=== PATIENT | male | born 1975 | race African-American/Black ===

== ENCOUNTER 2017-06-29 09:11 | Inpatient (IN) | payer BC ==
[~2017-06-29] VITALS: Ht 172.7 cm; Wt 75.7 kg
[2017-06-29 09:16] VITALS: BP 115/58; PULSE 120; RESP 30; TEMP 97.6; O2SAT 100
[2017-06-29] MEDS ORDERED: CALCIUM GLUCONATE 10% 1 GM/10 ML VIAL SLOW IVP ONE (09:30)
[2017-06-29] MEDS ORDERED: SODIUM BICARBONATE 8.4% SOLN 50 MEQ/50 ML VIAL IV PUSH PRN ×4 (09:30→11:30)
[2017-06-29] MEDS ORDERED: POTASSIUM CHLOR 20 MEQ PREMIX 100 ML IV PRN ×5 (09:30)
[2017-06-29] MEDS ORDERED: SODIUM PHOSPHATE INJ 15 MMOL in SODIUM CHLORIDE 0.9% INJ 100 ML IV PRN (09:30)
[2017-06-29] MEDS ORDERED: INSULIN HUMAN REGULAR 1,000 UNITS/10 ML VIAL IV PUSH ONE ×2 (09:30→11:15)
[2017-06-29] MEDS ORDERED: POTASSIUM CHLOR 40 MEQ PREMIX 100 ML IV PRN ×2 (09:30)
[2017-06-29 09:49] LABS: AUTOMATED NEUTROPHIL # 20.1 TH/MM3 (1.8-7.7); BASOPHIL # 0.1 TH/MM3 (0-0.2); BASOPHIL % 0.5 % (0.0-2.0); EOSINOPHIL % 0.1 % (0.0-4.0); HEMATOCRIT 48.9 % (39.0-51.0); LYMPH % 9.4 % (9.0-44.0); LYMPHOCYTE # 2.3 TH/MM3 (1.0-4.8); MEAN CELL VOLUME 106.4 FL (80.0-100.0); MEAN CORPUSCULAR HEMOGLOBIN 29.7 PG (27.0-34.0); MONO % 7.5 % (0.0-8.0); NEUT % 82.5 % (16.0-70.0); PLATELET COUNT 261 TH/MM3 (150-450); RED CELL DISTRIBUTION WIDTH 15.4 % (11.6-17.2); WHITE BLOOD COUNT 24.4 TH/MM3 (4.0-11.0)
[2017-06-29 09:50] LABS: HEMO FLAGS AUTO DIFF; I-STAT POTASSIUM 8.8 MMOL/L (3.5-4.9); I-STAT SODIUM 121 MMOL/L (138-146); MEAN CORPUSCULAR HGB CONC 27.9 % (32.0-36.0)
[2017-06-29] MEDS ORDERED: RESP: ALBUTEROL 2.5 MG/3 ML NEB (PRN) ONE (10:15)
[2017-06-29] MEDS ORDERED: VANCOMYCIN INJ 1,150 MG in SODIUM CHLOR 0.9% 250 ML INJ 250 ML IV ONE (10:15)
[2017-06-29] MEDS ORDERED: RESP: ALBUTEROL CONC 2.5 MG/0.5 ML NEB INH ONE (10:15)
[2017-06-29] MEDS ORDERED: CEFEPIME INJ 2,000 MG in SODIUM CHLORIDE 0.9% INJ 100 ML IV ONE (10:15)
[2017-06-29] MEDS ORDERED: SODIUM BICARBONATE 8.4% INJ 50 MEQ/50 ML SYR IV PUSH ONE (10:15)
[2017-06-29 10:21] VITALS: O2SAT 100
[2017-06-29 10:22] LABS: BANDS 10 % (0-6); METAMYELOCYTES 5 % (0-1); NEUTROPHIL # MANUAL DIFF 20.5 TH/MM3 (1.8-7.7); POLYS (SEG NEUTROPHILS) 69 % (16-70); WBC DIFF SAMPLE 100
[2017-06-29 10:23] LABS: PLATELET ESTIMATE SMEAR NORMAL (NORMAL); PLATELET MORPHOLOGY ENLARGED (NORMAL)
[2017-06-29 10:24] LABS: SCAN/DIFF FINAL DIFF MANUAL
--- NOTE | 2017-06-29 10:24 | PD ---
HPI Chief Complaint: Diabetic Time Seen by Provider: 09:25 Travel History International Travel<30 days: No Contact w/Intl Traveler<30days: No Traveled to known affect area: No History of Present Illness HPI This is a 41-year-old male who presents to the emergency department with nausea , vomiting, abdominal discomfort and fatigue. He doesn't provide much history and most history is obtained from [facility]. He is here out of town visiting a friend. He has a history of type 1 diabetes. PFSH Past Medical History Diabetes: Yes Patient Takes Glucophage: No Past Surgical History Appendectomy: Yes Social History Alcohol Use: Yes (OCC) Tobacco Use: No Substance Use: No Allergies-Medications (Allergen,Severity, Reaction): Coded Allergies: No Known Drug Allergies (Verified Allergy, Unknown, 06/29/17) Review of Systems ROS Limitations: Clinical Condition, Altered Mental Status Physical Exam Narrative GENERAL: Somnolent with Kussmaul respirations SKIN: Dry with skin tenting HEAD: Atraumatic. Normocephalic. EYES: Pupils equal and round. No injection or drainage. ENT: Dry mucous membranes NECK: Trachea midline. CARDIOVASCULAR: Tachycardia. No murmur appreciated. RESPIRATORY: tachypnea. GASTROINTESTINAL: Abdomen soft, non-tender, nondistended. MUSCULOSKELETAL: No obvious deformities. NEUROLOGICAL: Says his name and answer simple questions but very somnolent.. No obvious cranial nerve deficits. Moving all extremities Data Data Last Documented VS Vital Signs Date Time Temp Pulse Resp B/P (MAP) Pulse Ox O2 Delivery O2 Flow Rate FiO2 06/29/17 10:21 100 21 06/29/17 09:26 163 18 Room Air 06/29/17 09:16 97.6 115/58 (77) Orders Orders Electrocardiogram (06/29/17 09:28) Vacuum Truck Driver / Telemetry ANALILIA.Q8H (06/29/17 09:28) ^ Insert Iv (06/29/17 09:28) Diet Npo (06/29/17 Breakfast) Complete Blood Count With Diff (06/29/17 09:28) Comprehensive Metabolic Panel (06/29/17 09:28) Magnesium (Mg) (06/29/17 09:28) Beta Hydroxybutyrate (Acetone) (06/29/17 09:28) Sodium Chlor 0.9% 1000 Ml Inj (Ns 1000 M (06/29/17 09:28) Sodium Chlor 0.9% 1000 Ml Inj (Ns 1000 M (06/29/17 09:28) Dext 5%-Nacl 0.9% 1000 Ml Inj (D5w-Ns 10 (06/29/17 09:28) Insulin Human Regular Inj (Novolin R Inj (06/29/17 09:30) Insulin Regular (Iv Infusion) (Novolin R (06/29/17 09:30) Potassium Chlor 40 Meq Premix (Kcl 40 Me (06/29/17 09:30) Potassium Chlor 40 Meq Premix (Kcl 40 Me (06/29/17 09:30) Potassium Chlor 20 Meq Premix (Kcl 20 Me (06/29/17 09:30) Potassium Chlor 20 Meq Premix (Kcl 20 Me (06/29/17:30) Potassium Chlor 20 Meq Premix (Kcl 20 Me (06/29/17 09:30) Potassium Chlor 20 Meq Premix (Kcl 20 Me (06/29/17 09:30) Potassium Chlor 20 Meq Premix (Kcl 20 Me (06/29/17 09:30) Potassium Chlor 20 Meq Premix (Kcl 20 Me (06/29/17 09:30) Sodium Bicarbonate 8.4% Inj (Sodium Bica (06/29/17 09:30) Sodium Bicarbonate 8.4% Inj (Sodium Bica (06/29/17 09:30) Sodium Phosphate Inj (Sodium Phosphate I (06/29/17 09:30) Hemoglobin (Hgb) A1c (06/29/17 09:28) Urinalysis - C+S If Indicated (06/29/17 09:28) Basic Metabolic Panel (Bmp) (06/29/17 14:28) Basic Metabolic Panel (Bmp) (06/29/17 20:28) Basic Metabolic Panel (Bmp) (06/30/17 02:28) Basic Metabolic Panel (Bmp) (06/30/17 08:28) Magnesium (Mg) (06/29/17 14:28) Magnesium (Mg) (06/29/17 20:28) Magnesium (Mg) (06/30/17 02:28) Magnesium (Mg) (06/30/17 08:28) Phosphorus (Po4) (06/29/17:28) Phosphorus (Po4) (06/29/17 20:28) Phosphorus (Po4) (06/30/17 02:28) Phosphorus (Po4) (06/30/17 08:28) Beta Hydroxybutyrate (Acetone) (06/29/17 20:28) Beta Hydroxybutyrate (Acetone) (06/30/17 08:28) Arterial Blood Gas (Abg) (06/29/17 ) Calcium Gluconate Inj (Calcium Gluconate (06/29/17 09:30) I-Stat Profile (06/29/17 09:32) I-Stat Creatinine (06/29/17 09:32) Lactic Acid (06/29/17 09:40) Albuterol Concentrated Neb (Albuterol Co (06/29/17 10:15) Sodium Bicarbonate 8.4% Inj (Sodium Bica (06/29/17 10:15) Blood Culture (06/29/17 10:12) Vancomycin Inj (Vancomycin Inj) (06/29/17 10:15) Cefepime Inj (Maxipime Inj) (06/29/17 10:15) Albuterol Neb (Albuterol Neb) (06/29/17 10:15) Lipase (06/29/17 10:49) Alcohol (Ethanol) (06/29/17 11:04) Drug Screen, Random Urine (06/29/17 11:04) Urinary Catheter Insert/Apply (06/29/17 11:10) Admit Order (Ed Use Only) (06/29/17 11:12) Labs Laboratory Tests Test 06/29/17 09:29 06/29/17 10:25 White Blood Count 24.4 TH/MM3 Red Blood Count 4.60 MIL/MM3 Hemoglobin 13.6 GM/DL Bedside Hemoglobin 16.7 G/DL Hematocrit 48.9 % Bedside Hematocrit 49.0 % Mean Corpuscular Volume 106.4 FL Mean Corpuscular Hemoglobin 29.7 PG Mean Corpuscular Hemoglobin Concent 27.9 % Red Cell Distribution Width 15.4 % Platelet Count 261 TH/MM3 Mean Platelet Volume 11.2 FL Neutrophils (%) (Auto) 82.5 % Lymphocytes (%) (Auto) 9.4 % Monocytes (%) (Auto) 7.5 % Eosinophils (%) (Auto) 0.1 % Basophils (%) (Auto) 0.5 % Neutrophils # (Auto) 20.1 TH/MM3 Lymphocytes # (Auto) 2.3 TH/MM3 Monocytes # (Auto) 1.8 TH/MM3 Eosinophils # (Auto) 0.0 TH/MM3 Basophils # (Auto) 0.1 TH/MM3 CBC Comment AUTO DIFF Differential Total Cells Counted 100 Neutrophils % (Manual) 69 % Band Neutrophils % 10 % Lymphocytes % 8 % Monocytes % 8 % Neutrophils # (Manual) 20.5 TH/MM3 Metamyelocytes 5 % Differential Comment FINAL DIFF MANUAL Platelet Estimate NORMAL Platelet Morphology Comment ENLARGED Bedside Sodium 121 MMOL/L Blood Urea Nitrogen 55 MG/DL Creatinine 4.50 MG/DL Random Glucose 1308 MG/DL Total Protein 7.6 GM/DL Albumin 3.7 GM/DL Calcium Level 8.6 MG/DL Magnesium Level 3.1 MG/DL Alkaline Phosphatase 125 U/L Aspartate Amino Transf (AST/SGOT) 25 U/L Alanine Aminotransferase (ALT/SGPT) 27 U/L Total Bilirubin 0.6 MG/DL Sodium Level 121 MEQ/L Potassium Level 8.7 MEQ/L Chloride Level 83 MEQ/L Carbon Dioxide Level LESS THAN 5.0 MEQ/L Bedside Potassium 8.8 MMOL/L Bedside Chloride 95 MMOL/L Anion Gap 33 MEQ/L Bedside Blood Urea Nitrogen 69 MG/DL Bedside Creatinine 3.8 MG/DL Estimat Glomerular Filtration Rate 15 ML/MIN Bedside Glucose MG/DL Lactic Acid Level 6.2 mmol/L B-Hydroxybutyrate 14.96 MMOL/L Blood Gas Puncture Site LT BRACHIAL Blood Gas Patient Temperature 98.6 Blood Gas HCO3 3 mmol/L Blood Gas Base Excess -25.5 mmol/L Blood Gas Oxygen Saturation 95 % Arterial Blood pH 7.06 Arterial Blood Partial Pressure CO2 12 mmHg Arterial Blood Partial Pressure O2 144 mmHg Arterial Blood Oxygen Content 17.3 Vol % Arterial Blood Carboxyhemoglobin 1.6 % Arterial Blood Methemoglobin 1.4 % Blood Gas Hemoglobin 12.8 G/DL Oxygen Delivery Device RA MDM Medical Decision Making Medical Screen Exam Complete: Yes Emergency Medical Condition: Yes Interpretation(s) Leukocytosis Macrocytosis 10% bandemia Hyponatremia Hyperkalemia Lactic acid is 6.2 Differential Diagnosis DKA, sepsis, hyperkalemia, electrolyte abnormality Narrative Course This is a 41-year-old male who presents to the emergency department with vomiting abdominal discomfort and altered mental status. He is accompanied by some friends who say that he is a very heavy alcoholic and he hasn't taken his insulin for several days and his sugars been running high and he's been continuing to binge. Patient clinically appears to be in diabetic ketoacidosis. Initial EKG demonstrated a wide QRS and peak T waves. He was given calcium immediately on arrival. I-STAT labs confirmed a potassium of 8.8. Serial albuterol bronchodilators were administered and the patient was given IV bicarbonate. ABG confirms metabolic acidosis. Patient was started on an insulin drip. Labs are concerning for underlying sepsis with a leukocytosis and bandemia. Cultures were obtained and the patient was started on broad- spectrum antibiotics. He was given volume resuscitation. He'll be admitted to the intensive care unit. Critical Care Narrative Aggregate critical care time was 60 minutes. Time to perform other separately billable procedures was not included in the critical care time. My time did not include minutes spent treating any other patients simultaneously or on activities that did not directly contribute to the patient's treatment. The services I provided to this patient were to treat and/or prevent clinically significant deterioration that could result in: Disability, I provided critical care services requiring my management, as noted below: Chart data review, documentation time, medication orders and management, vital sign assessments/reviewing monitor data, ordering and reviewing lab tests, ordering and interpreting/reviewing x-rays and diagnostic studies, care of the patient and discussion of the patient with the admitting physicians. Physician Communication Physician Communication Discussed with Dr. Dr. Dwyer Diagnosis Primary Impression: Diabetic ketoacidosis Qualified Codes: E10.11 - Type 1 diabetes mellitus with ketoacidosis with coma Admitting Information Admitting Physician Requests: Admit Shavonne Lua MD Jun 29, 2017 10:24
[2017-06-29] MEDS: SODIUM CHLOR 0.9% 1000 ML INJ 1,000 ML IV SCH ×7 (10:28→23:30)
[2017-06-29] MEDS: INSULIN REGULAR (IV INFUSION) 100 UNITS in SODIUM CHLORIDE 0.9% INJ 99 ML IV PRN ×2 (10:47→21:56)
[2017-06-29 10:55] LABS: BLOOD GAS BASE EXCESS -25.5 mmol/L (-2-2); BLOOD GAS CARBOXYHEMOGLOBIN 1.6 % (0-4); BLOOD GAS HCO3 3 mmol/L (22-26); BLOOD GAS METHEMOGLOBIN 1.4 % (0-2); BLOOD GAS O2 HGB SATURATION 95 % (90-100); BLOOD GAS OXYGEN CONTENT 17.3 Vol % (12.0-20.0); BLOOD GAS PCO2 12 mmHg (38-42); BLOOD GAS PO2 144 mmHg (61-120); BLOOD GAS TOTAL HGB 12.8 G/DL (12.0-16.0); TEMP CORR TO 98.6
[2017-06-29 10:56] LABS: CRITICAL VALUE YES; DRAW SITE LT BRACHIAL; NUMBER OF ARTERIAL PUNCTURES 1; OXYGEN DEVICE RA; STAT YES; ULNAR PULSE Y
[2017-06-29 11:02] LABS: ALKALINE PHOSPHATASE 125 U/L (45-117); ALT (GPT) 27 U/L (12-78); ANION GAP 33 MEQ/L (5-15); BICARBONATE LESS THAN 5.0 MEQ/L (21.0-32.0); BLOOD UREA NITROGEN 55 MG/DL (7-18); CHLORIDE 83 MEQ/L (98-107); GLOMERULAR FILTRATION RATE 15 ML/MIN (>89); TOTAL BILIRUBIN ADULT 0.6 MG/DL (0.2-1.0)
[2017-06-29 11:04] LABS: AST (GOT) 25 U/L (15-37); BETA-HYDROXYBUTYRATE 14.96 MMOL/L (0.00-0.39); MAGNESIUM 3.1 MG/DL (1.5-2.5); POTASSIUM 8.7 MEQ/L (3.5-5.1); SODIUM (NA) 121 MEQ/L (136-145)
[2017-06-29] MEDS ORDERED: CHLORHEXIDINE GLUCONATE 2 % 1 PACK (2 CLOTHS) TOP PRN (11:30)
[2017-06-29] MEDS ORDERED: MISCELLANEOUS NURSING INFORMATION XX SCH (11:30)
--- NOTE | 2017-06-29 11:38 | RADRPT ---
EXAM DATE/TIME: 06/29/2017 11:18 [facility] COMPARISON: No previous studies available for comparison. INDICATIONS : Eval for aspiration, short of breath. MEDICAL HISTORY : Diabetes mellitus type I. SURGICAL HISTORY : None. ENCOUNTER: Initial ACUITY: 1 day PAIN SCORE: 0/10 LOCATION: Bilateral chest FINDINGS: A single view of the chest demonstrates the lungs to be symmetrically aerated without evidence of mas s, infiltrate or effusion. The cardiomediastinal contours are unremarkable. Osseous structures are intact. CONCLUSION: No acute disease. Zev Banda Jr., MD on June 29, 2017 at 11:36 Board Certified Radiologist. This report was verified electronically.
[2017-06-29] MEDS ORDERED: HUMALOG SQ (12:02)
[2017-06-29] MEDS ORDERED: HIV MEDICATIONS (12:02)
[2017-06-29] MEDS ORDERED: LISI-515 PO (12:02)
[2017-06-29] MEDS ORDERED: LANTUS2P SQ (12:02)
--- NOTE | 2017-06-29 12:40 | HHI.HP ---
HPI Service Critical Care Medicine Primary Care Physician Unknown Admission Diagnosis diabetic ketoacidosis Diagnosis: Chief Complaint: Altered mental status Travel History International Travel<30 Days: No Contact w/Intl Traveler <30 Da: No Traveled to Known Affected Are: No Sepsis Criteria SIRS Criteria (2 or more): Heart rate over 90, RR > 20 or PaCO2 < 32, WBC > 32500, < 4000 or > 10% bands Criteria Outcome: Meets SIRS criteria History of Present Illness HPI This is a 41-year-old male who presents to the emergency department with nausea , vomiting, abdominal discomfort and fatigue which started this morning. He has a history of type 1 diabetes and has been on insulin for 5 years. He was initially diagnosed as diabetic from an episode of DKA. His friends brought him to the ER today and informed ER staff that patient has an alcohol abuse problem and has been drinking significant amounts of alcohol though the brought him to [facility] from [place] for an intervention. Patient was noted to have severe metabolic acidosis on arrival in the ER as well as hyperkalemia with suspected DKA. He also was noted to have an elevated lactic acid, abnormal renal function and leukocytosis. He was treated with IV calcium, bicarbonate, albuterol and subsequently given 7 units regular insulin IV and started on insulin drip per DKA protocol. He received 2 L normal saline bolus and was continued on IV fluids. Patient was accepted for admission by critical care medicine service. I evaluated the patient in the ER. At that time he was much more awake however was too drowsy. He was easily arousable and couldn't give me some of his history. History was obtained by reviewing records, discussion with patient as well as ER physician and ER nurse. When I evaluated the patient he denied any chest pain or nausea or abdominal discomfort. He denied any fever or chills. Denied any productive cough. He denied any dysuria or hematuria or any other urinary problem. PFSH Past Medical History Diabetes: Yes Patient Takes Glucophage: No Hypertension Past Surgical History Appendectomy: Yes Social History Alcohol Use: Yes (OCC) Tobacco Use: No Substance Use: No Family history: Patient denies any family history of diabetes mellitus. Allergies-Medications (Allergen,Severity, Reaction): Coded Allergies: No Known Drug Allergies (Verified Allergy, Unknown, 06/29/17) Medications at home: Lantus insulin 30 units subcutaneously daily at bedtime Regular insulin 9 units 3 times a day before meals Lisinopril 5 mg daily (recently started per patient) Review of Systems ROS Limitations: Clinical Condition, Altered Mental Status Per history of present illness Physical Exam Vital Signs Vital Signs Date Time Temp Pulse Resp B/P (MAP) Pulse Ox O2 Delivery O2 Flow Rate FiO2 06/29/17 10:21 100 21 06/29/17 09:26 163 18 100 Room Air 06/29/17 09:16 97.6 120 30 115/58 (77) 100 Physical Exam Physical Exam Narrative GENERAL: Somnolent with Kussmaul respirations SKIN: Warm and dry HEAD: Atraumatic. Normocephalic. EYES: Pupils equal and round. No injection or drainage. No pallor or icterus ENT: Dry mucous membranes NECK: Trachea midline. CARDIOVASCULAR: S1-S2 regular, no gallop or murmur RESPIRATORY: tachypnea. GASTROINTESTINAL: Abdomen soft, non-tender, nondistended. Bowel sounds present MUSCULOSKELETAL: No obvious deformities. NEUROLOGICAL: Drowsy, easily arousable, knows he is at the hospital. Knows it is June 2017. No obvious cranial nerve deficits. Following commands appropriately. Moving all extremities Laboratory Laboratory Tests Test 06/29/17 09:29 06/29/17 10:25 06/29/17 11:45 White Blood Count 24.4 TH/MM3 Red Blood Count 4.60 MIL/MM3 Hemoglobin 13.6 GM/DL Bedside Hemoglobin 16.7 G/DL Hematocrit 48.9 % Bedside Hematocrit 49.0 % Mean Corpuscular Volume 106.4 FL Mean Corpuscular Hemoglobin 29.7 PG Mean Corpuscular Hemoglobin Concent 27.9 % Red Cell Distribution Width 15.4 % Platelet Count 261 TH/MM3 Mean Platelet Volume 11.2 FL Neutrophils (%) (Auto) 82.5 % Lymphocytes (%) (Auto) 9.4 % Monocytes (%) (Auto) 7.5 % Eosinophils (%) (Auto) 0.1 % Basophils (%) (Auto) 0.5 % Neutrophils # (Auto) 20.1 TH/MM3 Lymphocytes # (Auto) 2.3 TH/MM3 Monocytes # (Auto) 1.8 TH/MM3 Eosinophils # (Auto) 0.0 TH/MM3 Basophils # (Auto) 0.1 TH/MM3 CBC Comment AUTO DIFF Differential Total Cells Counted 100 Neutrophils % (Manual) 69 % Band Neutrophils % 10 % Lymphocytes % 8 % Monocytes % 8 % Neutrophils # (Manual) 20.5 TH/MM3 Metamyelocytes 5 % Differential Comment FINAL DIFF MANUAL Platelet Estimate NORMAL Platelet Morphology Comment ENLARGED Bedside Sodium 121 MMOL/L Blood Urea Nitrogen 55 MG/DL Creatinine 4.50 MG/DL Random Glucose 1308 MG/DL Total Protein 7.6 GM/DL Albumin 3.7 GM/DL Calcium Level 8.6 MG/DL Magnesium Level 3.1 MG/DL Alkaline Phosphatase 125 U/L Aspartate Amino Transf (AST/SGOT) 25 U/L Alanine Aminotransferase (ALT/SGPT) 27 U/L Total Bilirubin 0.6 MG/DL Sodium Level 121 MEQ/L Potassium Level 8.7 MEQ/L Chloride Level 83 MEQ/L Carbon Dioxide Level LESS THAN 5.0 MEQ/L Bedside Potassium 8.8 MMOL/L Bedside Chloride 95 MMOL/L Anion Gap 33 MEQ/L Bedside Blood Urea Nitrogen 69 MG/DL Bedside Creatinine 3.8 MG/DL Estimat Glomerular Filtration Rate 15 ML/MIN Bedside Glucose MG/DL Lactic Acid Level 6.2 mmol/L Lipase 301 U/L Ethyl Alcohol Level LESS THAN 3 MG/DL B-Hydroxybutyrate 14.96 MMOL/L Blood Gas Puncture Site LT BRACHIAL Blood Gas Patient Temperature 98.6 Blood Gas HCO3 3 mmol/L Blood Gas Base Excess -25.5 mmol/L Blood Gas Oxygen Saturation 95 % Arterial Blood pH 7.06 Arterial Blood Partial Pressure CO2 12 mmHg Arterial Blood Partial Pressure O2 144 mmHg Arterial Blood Oxygen Content 17.3 Vol % Arterial Blood Carboxyhemoglobin 1.6 % Arterial Blood Methemoglobin 1.4 % Blood Gas Hemoglobin 12.8 G/DL Oxygen Delivery Device RA Result Diagram: 06/29/1792806/29/17928 Imaging Chest x-ray portable which was personally reviewed: Lung lovell appear clear with no obvious infiltrates or effusions. Caprini VTE Risk Assessment Caprini VTE Risk Assessment: No/Low Risk (score <= 1) Caprini Risk Assessment Model Point Value = 1 Point Value = 2 Point Value = 3 Point Value = 5 Age 41-60 Minor surgery BMI > 25 kg/m2 Swollen legs Varicose veins or History of unexplained or recurrent spontaneous Oral contraceptives or hormone replacement Sepsis (< 1 month) Serious lung disease, including pneumonia (< 1 month) Abnormal pulmonary function Acute myocardial infarction Congestive heart failure (< 1 month) History of inflammatory bowel disease Medical patient at bed rest Age 61-74 Arthroscopic surgery Major open surgery (> 45 min) Laparoscopic surgery (> 45 min) Malignancy Confined to bed (> 72 hours) Immobilizing plaster cast Central venous access Age >= 75 History of VTE Family history of VTE Factor V Leiden Prothrombin [id number] Lupus anticoagulant Anticardiolipin antibodies Elevated serum homocysteine Heparin-induced thrombocytopenia Other congenital or acquired thrombophilia Stroke (< 1 month) Elective arthroplasty Hip, pelvis, or leg fracture Acute spinal cord injury (< 1 month) Prophylaxis Regimen Total Risk Factor Score Risk Level Prophylaxis Regimen 0-1 Low Early ambulation 2 Moderate Order ONE of the following: *Sequential Compression Device (SCD) *Heparin 5000 units SQ BID 3-4 Higher Order ONE of the following medications: *Heparin 5000 units SQ TID *Enoxaparin/Lovenox 40 mg SQ daily (WT < 150 kg, CrCl > 30 mL/min) *Enoxaparin/Lovenox 30 mg SQ daily (WT < 150 kg, CrCl > 10-29 mL/min) *Enoxaparin/Lovenox 30 mg SQ BID (WT < 150 kg, CrCl > 30 mL/min) AND/OR *Sequential Compression Device (SCD) 5 or more Highest Order ONE of the following medications: *Heparin 5000 units SQ TID (Preferred with Epidurals) *Enoxaparin/Lovenox 40 mg SQ daily (WT < 150 kg, CrCl > 30 mL/min) *Enoxaparin/Lovenox 30 mg SQ daily (WT < 150 kg, CrCl > 10-29 mL/min) *Enoxaparin/Lovenox 30 mg SQ BID (WT < 150 kg, CrCl > 30 mL/min) AND *Sequential Compression Device (SCD) Assessment and Plan Assessment and Plan 41-year-old male with: Metabolic encephalopathy Diabetic ketoacidosis Hyperosmolar state Lactic acidosis Hyperkalemia Pseudohyponatremia (corrected sodium 150 mEq/liter) TANNER Dehydration History of alcohol abuse History of hypertension Plan: Neuro: Follow neuro status, avoid narcotics. Watch for alcohol withdrawal. We will initiate by mouth thiamine/folic acid and alcohol withdrawal protocol to avoid alcohol withdrawal. Cardiovascular: Aggressive fluid resuscitation. Watch for hypotension. Hold lisinopril in view of acute kidney injury. Pulmonary: Supplemental O2 as needed. Patient hyperventilating secondary to metabolic acidosis and this should improve as acidosis corrects. Follow ABG. GI/liver: Keep nothing by mouth for now. Renal/: IV hydration, strict intake output, monitor and replete elect lites, follow BUN/creatinine. Cotton catheterization for close monitoring of urine output while fluid resuscitation ongoing and patient with acute renal failure and dehydration with hyperkalemia. Monitor and replete electrolytes ID: Patient received empiric antibiotics in the ER. His chest x-ray is clear. Will review UA and if clear we'll hold off on antibiotics at this time as he appears to have a SIRS response secondary to DKA with no obvious source of infection. Heme: Follow CBC Endocrine: Insulin drip per DKA protocol. Prophylaxis: Pepcid, SCDs. Early ambulation starting tomorrow depending on resolution of DKA. If unable to ambulate will consider subcutaneous heparin tomorrow. Condition critical with life-threatening metabolic acidosis and hyperkalemia secondary to DKA. Time spent on critical care excluding procedures 70 minutes Matthew Dwyer MD Jun 29, 2017 12:40
[2017-06-29 13:02] LABS: BACTERIA, URINE RARE /hpf; BLOOD, URINE SMALL (NEG); COMMENT (UR) CATH-CULTURE IND; CULTURE IF INDICATED CATH CULTURE IND; GLUCOSE,URINE 1000 mg/dL (NEG); HYALINE CAST, URINE 6 /lpf (RARE); KETONE, URINE 150 mg/dL (NEG); MUCUS URINE FEW /lpf (OCC); NITRITE,URINE NEG (NEG); PH, URINE 5.5 (5.0-8.5); SQUAMOUS EPITHELIAL CELL URINE <1 /hpf (0-5); URINE COLOR LIGHT-YELLOW (YELLW/STRAW)
[2017-06-29] MEDS ORDERED: LORazepam 2 MG/ML VIAL IV PUSH PRN ×4 (13:45)
[2017-06-29] MEDS ORDERED: cloNIDine HCL 0.1 MG TAB PO PRN (13:45)
[2017-06-29] MEDS ORDERED: LORazepam 1 MG TAB PO PRN (13:45)
[2017-06-29] MEDS ORDERED: HALOPERIDOL LACTATE 5 MG/ML AMP IM PRN (13:45)
[2017-06-29] MEDS ORDERED: ONDANSETRON HCL 4 MG/2 ML VIAL IV PUSH PRN (13:45)
[2017-06-29] MEDS ORDERED: FLUMAZENIL 0.5 MG/5 ML VIAL IV PUSH PRN (13:45)
[2017-06-29] MEDS ORDERED: LORazepam 2 MG TAB PO PRN (13:45)
--- NOTE | 2017-06-29 14:21 | EKG ---
Date Performed: 06/29/2017 Time Performed: 09:29:39 PTAGE: 41 years EKG: WIDE COMPLEX TACHYCARDIA, CONSIDER VENTRICULAR TACHYCARDIA T WAVE PEAKING CONSIDER HYPERKAL EMIA OR ISCHEMIA NONSPECIFIC INTRAVENTRICULAR CONDUCTION DELAY LEFT ANTERIOR FASCICULAR BLOCK ABNORMA L ECG NO PREVIOUS TRACING DOCTOR: Hong Matthew Interpretating Date/Time 06/29/2017 14:20:01
[2017-06-29 14:24] LABS: BLOOD GAS BASE EXCESS -23.4 mmol/L (-2-2); BLOOD GAS CARBOXYHEMOGLOBIN 2.2 % (0-4); BLOOD GAS HCO3 4 mmol/L (22-26); BLOOD GAS METHEMOGLOBIN 1.8 % (0-2); BLOOD GAS O2 HGB SATURATION 94 % (90-100); BLOOD GAS OXYGEN CONTENT 17.2 Vol % (12.0-20.0); BLOOD GAS PCO2 14 mmHg (38-42); BLOOD GAS PO2 128 mmHg (61-120); BLOOD GAS TOTAL HGB 12.8 G/DL (12.0-16.0); TEMP CORR TO 98.6
[2017-06-29 14:25] LABS: CRITICAL VALUE YES; OXYGEN DEVICE RA
[2017-06-29 14:26] LABS: DRAW SITE RT RADIAL; FIO2 21 %; NUMBER OF ARTERIAL PUNCTURES 1; STAT NO; ULNAR PULSE PRESENT
--- NOTE | 2017-06-29 15:59 | EKG ---
Date Performed: 06/29/2017 Time Performed: 10:55:39 PTAGE: 41 years EKG: Unclear underlying tachycardia LEFT ANTERIOR FASCICULAR BLOCK TALL T-WAVES, SUGGESTS HYPERK ALEMIA ABNORMAL ECG No significant change from prior electrocardiogram although T-wave amplitudes hav e it decreased. NO PREVIOUS TRACING DOCTOR: Bonifacio Cedeno Interpretating Date/Time 06/29/2017 15:58:09
[2017-06-29 16:13] LABS: BICARBONATE 7.1 MEQ/L (21.0-32.0); POTASSIUM 4.4 MEQ/L (3.5-5.1)
[2017-06-29 19:02] VITALS: O2SAT 99
[2017-06-29] MEDS: DEXT 5%-NACL 0.9% 1000 ML INJ 1,000 ML IV SCH (19:28)
[2017-06-29 20:00] VITALS: BP 120/62; PULSE 109; RESP 18; TEMP 99.2; O2SAT 100
[2017-06-29 20:00] LABS: ANION GAP 22 MEQ/L (5-15)
[2017-06-29 20:13] LABS: BETA-HYDROXYBUTYRATE 7.42 MMOL/L (0.00-0.39); BLOOD UREA NITROGEN 50 MG/DL (7-18); CHLORIDE 105 MEQ/L (98-107); GLOMERULAR FILTRATION RATE 22 ML/MIN (>89); MAGNESIUM 2.9 MG/DL (1.5-2.5); POTASSIUM 3.6 MEQ/L (3.5-5.1); SODIUM (NA) 141 MEQ/L (136-145)
[2017-06-29] MEDS: FAMOTIDINE 20 MG TAB PO SCH (20:14)
[2017-06-29] MEDS: POTASSIUM CHLOR 20 MEQ PREMIX 100 ML IV PRN ×2 (20:45→22:58)
[2017-06-29 22:00] VITALS: PULSE 106
[2017-06-30] VITALS (20 sets, daily range): BP systolic 112–133; BP diastolic 60–87; PULSE 89–111; RESP 14–23; TEMP 98.2–99.5; O2SAT 96–98
[2017-06-30] MEDS: DEXT 5%-NACL 0.9% 1000 ML INJ 1,000 ML IV SCH ×2 (01:04→07:16)
[2017-06-30] MEDS: SODIUM CHLOR 0.9% 1000 ML INJ 1,000 ML IV SCH ×4 (01:28→07:16)
[2017-06-30] MEDS: CHLORHEXIDINE GLUCONATE 2 % 1 PACK (2 CLOTHS) TOP SCH (04:00)
[2017-06-30 04:15] LABS: BICARBONATE 26.3 MEQ/L (21.0-32.0); MAGNESIUM 2.5 MG/DL (1.5-2.5); POTASSIUM 3.4 MEQ/L (3.5-5.1)
[2017-06-30] MEDS: POTASSIUM CHLOR 20 MEQ PREMIX 100 ML IV PRN (05:18)
[2017-06-30] MEDS ORDERED: DC Insulin drip 2 hrs post basal insulin dose ONE (07:45)
[2017-06-30] MEDS ORDERED: GLUCAGON 1 MG/ML VIAL OTHER PRN (07:45)
[2017-06-30] MEDS ORDERED: DC previous DKA orders (HMC 1917) ONE (07:45)
[2017-06-30] MEDS ORDERED: DEXTROSE 50% IN WATER 50 ML VIAL(D50) IV PUSH PRN (07:45)
--- NOTE | 2017-06-30 07:52 | HHI.CCPN ---
Subjective Remarks/Hospital Course This is a 41-year-old male who presents to the emergency department with nausea , vomiting, abdominal discomfort and fatigue which started this morning. He has a history of type 1 diabetes and has been on insulin for 5 years. He was initially diagnosed as diabetic from an episode of DKA. His friends brought him to the ER today and informed ER staff that patient has an alcohol abuse problem and has been drinking significant amounts of alcohol though the brought him to [facility] from [place] for an intervention. Patient was noted to have severe metabolic acidosis on arrival in the ER as well as hyperkalemia with suspected DKA. He also was noted to have an elevated lactic acid, abnormal renal function and leukocytosis. He was treated with IV calcium, bicarbonate, albuterol and subsequently given 7 units regular insulin IV and started on insulin drip per DKA protocol. He received 2 L normal saline bolus and was continued on IV fluids. Patient was accepted for admission by critical care medicine service. I evaluated the patient in the ER. At that time he was much more awake however was too drowsy. He was easily arousable and couldn't give me some of his history. History was obtained by reviewing records, discussion with patient as well as ER physician and ER nurse. When I evaluated the patient he denied any chest pain or nausea or abdominal discomfort. He denied any fever or chills. Denied any productive cough. He denied any dysuria or hematuria or any other urinary problem. SUBJECTIVE: 06/30: Resting comfortably in bed in no acute distress. Denies abdominal pain. Acetone has cleared. Afebrile. Objective Vital Signs Date Time Temp Pulse Resp B/P (MAP) Pulse Ox O2 Delivery O2 Flow Rate FiO2 06/30/17 06:00 100 06/30/17 04:00 98.2 16 128/77 (94) 96 06/29/17 19:02 21 06/29/17 09:26 Room Air Intake and Output 06/30/17 06/30/17 07/01/17 08:00 16:00 00:00 Intake Total 1589 ml Output Total 3600 ml Balance -2010 ml Result Diagram: 06/29/17 0929 06/30/17 0340 Other Results Microbiology Date/Time Source Procedure Growth Status 06/29/17 10:25 Blood Peripheral Aerobic Blood Culture Pending Received 06/29/17 10:25 Blood Peripheral Anaerobic Blood Culture Pending Received 06/29/17 11:50 Urine Catheterized Urine Urine Culture Pending Received Imaging Last Impressions Chest X-Ray 06/29/17 0000 Signed Impressions: Service Date/Time: Thursday, June 29, 2017 11:18 - CONCLUSION: No acute disease. Zev Banda Jr., MD Objective Remarks GENERAL: 41-year-old male, resting in bed in no distress on room air SKIN: Warm and dry HEAD: Atraumatic. Normocephalic. EYES: Pupils equal and round. No injection or drainage. No pallor or icterus ENT: Examined and moist and pink. NECK: Trachea midline. CARDIOVASCULAR: S1-S2 regular, no gallop or murmur RESPIRATORY: Essentially clear without wheezes rales or rhonchi GASTROINTESTINAL: Abdomen soft, non-tender, nondistended. Bowel sounds present MUSCULOSKELETAL: No obvious deformities. NEUROLOGICAL: Renal nerves II through XII grossly intact. Strength is equal symmetric. Normal sensation. A/P Assessment and Plan 41-year-old male with: Diabetic ketoacidosis Hyperosmolar state Lactic acidosis Hyperkalemia Pseudohyponatremia (corrected sodium 150 mEq/liter) TANNER Leukocytosis Dehydration History of alcohol abuse History of hypertension Plan: Neuro: Follow neuro status, avoid narcotics. Watch for alcohol withdrawal. Continue by mouth thiamine/folic acid and alcohol withdrawal protocol to avoid alcohol withdrawal. Cardiovascular: Aggressive fluid resuscitation. We'll switch to half-normal saline at 125 cc an hour 2 L Watch for hypotension. Hold lisinopril in view of acute kidney injury. Pulmonary: Supplemental O2 as needed. Patient hyperventilating has subsided GI/liver: 2000 kcal ADA diet Renal/: IV hydration, strict intake output, monitor and replete electrolytes, follow BUN/creatinine. Cotton catheterization for close monitoring of urine output while fluid resuscitation ongoing and patient with acute renal failure and dehydration with hyperkalemia. Monitor and replete electrolytes ID: Patient received empiric antibiotics in the ER. His chest x-ray is clear. Will review UA and if clear we'll hold off on antibiotics at this time as he appears to have a SIRS response secondary to DKA with no obvious source of infection. Heme: Follow CBC in a.m. Endocrine: Insulin drip per DKA protocol will be discontinued and transferred to insulin detemir 15 units twice a day and insulin aspart 8 units 3 times a day with sliding scale Prophylaxis: Famotidine, SCDs. Early ambulation starting tomorrow depending on resolution of DKA. Level II follow-up Patient is stable from a critical care medicine standpoint. Assign care to hospitalist in a.m. 07/01. Mj Torres MD Jun 30, 2017 07:52
[2017-06-30] MEDS: INSULIN ASPART 1,000 UNITS/10 ML VIAL SQ SCH ×3 (08:00→17:00)
[2017-06-30] MEDS: SODIUM CHLOR 0.45% 1000 ML INJ 1,000 ML IV SCH ×2 (08:00→16:00)
[2017-06-30] MEDS ORDERED: INSULIN NovoLIN REGULAR SUPPLEMENTAL SCALE SQ SCH ×3 (08:00)
[2017-06-30] MEDS: INSULIN NovoLIN REGULAR SUPPLEMENTAL SCALE SQ SCH ×4 (08:00→20:25)
[2017-06-30] MEDS ORDERED: POTASSIUM PHOSPHATE INJ 30 MMOL in SODIUM CHLOR 0.9% 250 ML INJ 250 ML IV ONE (10:00)
[2017-06-30] MEDS: FAMOTIDINE 20 MG TAB PO SCH ×2 (10:49→20:30)
[2017-06-30] MEDS: THIAMINE HCL 100 MG TAB PO SCH (10:49)
[2017-06-30] MEDS: FOLIC ACID 1 MG TAB PO SCH (10:49)
[2017-06-30] MEDS: MULTIVITAMINS/MINERALS THERAPEUTIC TAB PO SCH (10:49)
[2017-06-30] MEDS: INSULIN DETEMIR 100 UNITS/ML VIAL SQ SCH ×2 (10:50→20:30)
[2017-06-30 11:20] LABS: BICARBONATE 23.3 MEQ/L (21.0-32.0); MAGNESIUM 2.2 MG/DL (1.5-2.5); POTASSIUM 4.1 MEQ/L (3.5-5.1)
[2017-06-30 11:30] LABS: BETA-HYDROXYBUTYRATE 4.84 MMOL/L (0.00-0.39)
[2017-06-30 17:31] LABS: BICARBONATE 25.7 MEQ/L (21.0-32.0); POTASSIUM 3.4 MEQ/L (3.5-5.1)
[2017-07-01] VITALS (9 sets, daily range): BP systolic 119–148; BP diastolic 74–80; PULSE 77–98; RESP 16–20; TEMP 98–99.9; O2SAT 96–99
[2017-07-01] MEDS: CHLORHEXIDINE GLUCONATE 2 % 1 PACK (2 CLOTHS) TOP SCH (04:00)
[2017-07-01 06:21] LABS: AUTOMATED NEUTROPHIL # 8.6 TH/MM3 (1.8-7.7); BASOPHIL % 0.4 % (0.0-2.0); EOSINOPHIL % 0.2 % (0.0-4.0); HEMATOCRIT 39.2 % (39.0-51.0); HEMO FLAGS DIFF FINAL; LYMPHOCYTE # 1.8 TH/MM3 (1.0-4.8); MEAN CELL VOLUME 88.2 FL (80.0-100.0); MEAN CORPUSCULAR HEMOGLOBIN 29.1 PG (27.0-34.0); MEAN CORPUSCULAR HGB CONC 32.9 % (32.0-36.0); MONO % 7.4 % (0.0-8.0); PLATELET COUNT 176 TH/MM3 (150-450); RED BLOOD COUNT 4.45 MIL/MM3 (4.50-5.90); RED CELL DISTRIBUTION WIDTH 13.6 % (11.6-17.2); WHITE BLOOD COUNT 11.3 TH/MM3 (4.0-11.0)
[2017-07-01 07:06] LABS: ALKALINE PHOSPHATASE 84 U/L (45-117); ALT (GPT) 21 U/L (12-78); AMYLASE 101 U/L (25-115); ANION GAP 9 MEQ/L (5-15); AST (GOT) 26 U/L (15-37); BICARBONATE 26.7 MEQ/L (21.0-32.0); BLOOD UREA NITROGEN 14 MG/DL (7-18); CHLORIDE 103 MEQ/L (98-107); CREATINE KINASE 251 U/L (39-308); GLOMERULAR FILTRATION RATE 73 ML/MIN (>89); MAGNESIUM 1.8 MG/DL (1.5-2.5); POTASSIUM 3.1 MEQ/L (3.5-5.1); SODIUM (NA) 139 MEQ/L (136-145); TOTAL BILIRUBIN ADULT 0.6 MG/DL (0.2-1.0)
[2017-07-01] MEDS: INSULIN NovoLIN REGULAR SUPPLEMENTAL SCALE SQ SCH ×4 (08:00→20:53)
[2017-07-01 09:27] LABS: APTT (PATIENT) 24.7 SEC (24.3-30.1)
[2017-07-01] MEDS: FOLIC ACID 1 MG TAB PO SCH (10:00)
[2017-07-01] MEDS: MULTIVITAMINS/MINERALS THERAPEUTIC TAB PO SCH (10:00)
[2017-07-01] MEDS: FAMOTIDINE 20 MG TAB PO SCH ×2 (10:00→20:51)
[2017-07-01] MEDS: THIAMINE HCL 100 MG TAB PO SCH (10:00)
[2017-07-01] MEDS: INSULIN ASPART 1,000 UNITS/10 ML VIAL SQ SCH ×3 (10:00→18:20)
[2017-07-01] MEDS: INSULIN DETEMIR 100 UNITS/ML VIAL SQ SCH ×2 (10:01→20:51)
[2017-07-01] MEDS ORDERED: POTASSIUM CHLORIDE 10 MEQ CONTROLLED RELEASE TAB PO ONE (13:30)
--- NOTE | 2017-07-01 14:31 | HHI.PR ---
Subjective Remarks Follow up DKA, hypokalemia. Patient states that he feels better, but still "not quite right". Denies chest pain, dyspnea. No nausea/vomiting. Objective Vitals Vital Signs Date Time Temp Pulse Resp B/P (MAP) Pulse Ox O2 Delivery O2 Flow Rate FiO2 07/01/17 08:01 99.9 86 16 122/80 (94) 98 07/01/17 04:00 98.9 81 16 122/74 (90) 97 07/01/17 00:00 99.1 86 16 119/76 (90) 96 06/30/17 22:22 90 06/30/17 22:00 99.4 98 16 116/60 (78) 98 06/30/17 20:00 92 06/30/17 20:00 99.4 89 17 112/69 (83) 98 06/30/17 18:00 105 06/30/17 18:00 105 18 118/73 (88) 98 06/30/17 17:00 100 17 118/67 (84) 98 06/30/17 16:00 95 06/30/17 16:00 98.5 95 18 122/72 (89) 98 06/30/17 15:00 103 23 121/76 (91) 98 I/O 06/30/17 06/30/17 06/30/17 07/01/17 07/01/17 07/01/17 07:00 15:00 23:00 07:00 15:00 23:00 Intake Total 1269 ml 526 ml 3738 ml 734 ml Output Total 3600 ml 1200 ml 0 ml Balance -2331 ml 526 ml 2538 ml 734 ml Intake Oral 480 ml IV Total 1269 ml 526 ml 3258 ml 734 ml Output Urine Total 3600 ml 1200 ml 0 ml Bladder Scan Volume Amount 354 ml # Bowel Movements 0 0 Result Diagram: 07/01/17 0600 07/01/17 0600 Imaging Last Impressions Chest X-Ray 06/29/17 0000 Signed Impressions: Service Date/Time: Thursday, June 29, 2017 11:18 - CONCLUSION: No acute disease. Zev Banda Jr., MD Objective Remarks General: No acute distress. Heart: Regular rate and rhythm. No murmur. Lungs: Clear to auscultation bilaterally. No wheezes, rales, or rhonchi. Breathing is nonlabored. Abdomen: Soft, nontender, nondistended. Extremities: No lower extremity edema. Psych: Alert and oriented. Procedures None Urinary Catheter: No Vascular Central Line Catheter: No A/P Problem List: (1) Hypokalemia ICD Code: E87.6 - Hypokalemia (2) Acute kidney injury ICD Code: N17.9 - Acute kidney failure, unspecified (3) Dehydration ICD Code: E86.0 - Dehydration (4) History of alcohol abuse ICD Code: Z87.898 - Personal history of other specified conditions (5) Hypertension ICD Code: I10 - Essential (primary) hypertension (6) Diabetic ketoacidosis ICD Code: E13.10 - Other specified diabetes mellitus with ketoacidosis without coma Status: Acute Assessment and Plan 1. Diabetic ketoacidosis: Resolved. 2. Insulin-dependent diabetes mellitus, type 1: Continue Levemir, prandial insulin. Monitor Accu-Cheks and cover with sliding scale insulin. 3. Hypokalemia: Supplement potassium. 4. Acute kidney injury: Improving, but creatinine remains elevated. IV fluids have been discontinued. Encourage oral fluid intake. 5. History of alcohol abuse: Continue thiamine, folic acid. Continue CIWA protocol. 6. GI prophylaxis: Famotidine. 7. DVT prophylaxis: SCDs, ambulation. Discharge Planning Possible discharge home tomorrow pending further clinical improvement. Problem Qualifiers (1) Diabetic ketoacidosis: Qualified Codes: E10.11 - Type 1 diabetes mellitus with ketoacidosis with coma Eleuterio Amin MD Jul 01, 2017 14:31
[2017-07-01] MEDS ORDERED: VENL100T PO (16:25)
[2017-07-02] VITALS: BP 124/60; PULSE 89; RESP 20; TEMP 98.6; O2SAT 95
[2017-07-02] MEDS: CHLORHEXIDINE GLUCONATE 2 % 1 PACK (2 CLOTHS) TOP SCH (03:05)
[2017-07-02 04:00] VITALS: BP 102/57; PULSE 61; RESP 18; TEMP 97.4; O2SAT 99
[2017-07-02 07:45] LABS: AUTOMATED NEUTROPHIL # 3.6 TH/MM3 (1.8-7.7); BASOPHIL % 0.2 % (0.0-2.0); EOSINOPHIL % 0.6 % (0.0-4.0); HEMATOCRIT 37.2 % (39.0-51.0); HEMO FLAGS DIFF FINAL; LYMPH % 32.4 % (9.0-44.0); MEAN CELL VOLUME 90.1 FL (80.0-100.0); MEAN CORPUSCULAR HEMOGLOBIN 29.6 PG (27.0-34.0); MEAN CORPUSCULAR HGB CONC 32.9 % (32.0-36.0); NEUT % 57.8 % (16.0-70.0); PLATELET COUNT 152 TH/MM3 (150-450); RED BLOOD COUNT 4.13 MIL/MM3 (4.50-5.90); RED CELL DISTRIBUTION WIDTH 13.7 % (11.6-17.2); WHITE BLOOD COUNT 6.3 TH/MM3 (4.0-11.0)
[2017-07-02 07:58] VITALS: PULSE 66
[2017-07-02 08:00] VITALS: BP 122/79; PULSE 78; RESP 18; TEMP 98.4; O2SAT 100
[2017-07-02] MEDS: INSULIN NovoLIN REGULAR SUPPLEMENTAL SCALE SQ SCH ×2 (08:00→12:00)
[2017-07-02 08:05] LABS: BICARBONATE 29.3 MEQ/L (21.0-32.0); POTASSIUM 3.6 MEQ/L (3.5-5.1)
[2017-07-02] MEDS: INSULIN ASPART 1,000 UNITS/10 ML VIAL SQ SCH ×2 (08:22→12:33)
[2017-07-02] MEDS: THIAMINE HCL 100 MG TAB PO SCH (08:23)
[2017-07-02] MEDS: FAMOTIDINE 20 MG TAB PO SCH (08:23)
[2017-07-02] MEDS: MULTIVITAMINS/MINERALS THERAPEUTIC TAB PO SCH (08:23)
[2017-07-02] MEDS: FOLIC ACID 1 MG TAB PO SCH (08:23)
[2017-07-02] MEDS: INSULIN DETEMIR 100 UNITS/ML VIAL SQ SCH (08:23)
[2017-07-02] MEDS ORDERED: VENLAFAXINE HCL 75 MG TAB PO SCH (09:00)
--- NOTE | 2017-07-02 09:52 | HHI.PR ---
Subjective Remarks Follow up diabetes, renal insufficiency. Patient reporting nausea. Denies vomiting, diarrhea, abdominal pain. Feels that he could go home today. Objective Vitals Vital Signs Date Time Temp Pulse Resp B/P (MAP) Pulse Ox O2 Delivery O2 Flow Rate FiO2 07/02/17 08:29 Room Air 07/02/17 08:00 98.4 78 18 122/79 (93) 100 07/02/17 04:00 Room Air 07/02/17 04:00 97.4 61 18 102/57 (72) 99 07/02/17 00:00 98.6 89 20 124/60 (81) 95 07/02/17 00:00 Room Air 07/01/17 20:00 99.2 83 20 148/77 (100) 99 07/01/17 19:56 85 07/01/17 16:01 98.6 77 16 129/79 (96) 98 07/01/17 14:55 98.7 07/01/17 12:01 98.0 84 16 120/80 (93) 96 I/O 07/01/17 07/01/17 07/01/17 07/02/17 07/02/17 07/02/17 07:00 15:00 23:00 07:00 15:00 23:00 Intake Total 734 ml 520 ml 360 ml Output Total 0 ml 900 ml 800 ml Balance 734 ml -380 ml -440 ml Intake Oral 520 ml 360 ml IV Total 734 ml Output Urine Total 0 ml 900 ml 800 ml Bladder Scan Volume Amount 354 ml # Bowel Movements 2 0 Result Diagram: 07/02/17 0620 07/02/17 0600 Imaging Last Impressions Chest X-Ray 06/29/17 0000 Signed Impressions: Service Date/Time: Thursday, June 29, 2017 11:18 - CONCLUSION: No acute disease. Zev Banda Jr., MD Objective Remarks General: No acute distress. Heart: Regular rate and rhythm. No murmur. Lungs: Clear to auscultation bilaterally. No wheezes, rales, or rhonchi. Breathing is nonlabored. Abdomen: Soft, nontender, nondistended. Extremities: No lower extremity edema. Psych: Alert and oriented. Procedures None Urinary Catheter: No Vascular Central Line Catheter: No A/P Problem List: (1) Hypokalemia ICD Code: E87.6 - Hypokalemia (2) Acute kidney injury ICD Code: N17.9 - Acute kidney failure, unspecified (3) Dehydration ICD Code: E86.0 - Dehydration (4) History of alcohol abuse ICD Code: Z87.898 - Personal history of other specified conditions (5) Hypertension ICD Code: I10 - Essential (primary) hypertension (6) Diabetic ketoacidosis ICD Code: E13.10 - Other specified diabetes mellitus with ketoacidosis without coma Status: Acute Assessment and Plan 1. Diabetic ketoacidosis: Resolved. 2. Insulin-dependent diabetes mellitus, type 1: Continue Levemir, prandial insulin. Monitor Accu-Cheks and cover with sliding scale insulin. 3. Hypokalemia: Resolved. 4. Acute kidney injury: Improved. 5. History of alcohol abuse: Continue thiamine, folic acid. Continue CIWA protocol. 6. GI prophylaxis: Famotidine. 7. DVT prophylaxis: SCDs, ambulation. Discharge Planning Discharge home if patient tolerates lunch. Problem Qualifiers (1) Diabetic ketoacidosis: Qualified Codes: E10.11 - Type 1 diabetes mellitus with ketoacidosis with coma Eleuterio Amin MD Jul 02, 2017 09:52
[2017-07-02] MEDS ORDERED: FOLI1TAB6 PO (09:56)
[2017-07-02] MEDS ORDERED: NOVORP2 SQ (09:56)
[2017-07-02] MEDS ORDERED: GNP100TA3 PO (09:56)
--- NOTE | 2017-07-02 09:56 | HHI.DCPOC ---
Discharge Care Plan Diagnosis: (1) Diabetic ketoacidosis (2) Dehydration (3) Hypokalemia (4) Hypertension (5) History of alcohol abuse (6) Acute kidney injury Goals to Promote Your Health * To prevent worsening of your condition and complications * To maintain your health at the optimal level Directions to Meet Your Goals Take your medications as prescribed Follow your dietary instruction Follow activity as directed Keep your appointments as scheduled Take your immunizations and boosters as scheduled If your symptoms worsen call your PCP, if no PCP go to Urgent Care Center or Emergency Room Smoking is Dangerous to Your Health. Avoid second hand smoke Call the 24-hour hour crisis hotline for domestic abuse at Eleuterio Amin MD Jul 02, 2017 09:56
--- NOTE | 2017-07-02 09:58 | HHI.DS ---
Discharge Summary Admission Date Jun 29, 2017 at 11:13 Discharge Date: Jul 02, 2017 Admitting Diagnosis diabetic ketoacidosis (1) Hypokalemia ICD Code: E87.6 - Hypokalemia (2) Acute kidney injury ICD Code: N17.9 - Acute kidney failure, unspecified (3) Dehydration ICD Code: E86.0 - Dehydration (4) History of alcohol abuse ICD Code: Z87.898 - Personal history of other specified conditions (5) Hypertension ICD Code: I10 - Essential (primary) hypertension (6) Diabetic ketoacidosis ICD Code: E13.10 - Other specified diabetes mellitus with ketoacidosis without coma Status: Acute Procedures None Brief History - From Admission HPI This is a 41-year-old male who presents to the emergency department with nausea , vomiting, abdominal discomfort and fatigue which started this morning. He has a history of type 1 diabetes and has been on insulin for 5 years. He was initially diagnosed as diabetic from an episode of DKA. His friends brought him to the ER today and informed ER staff that patient has an alcohol abuse problem and has been drinking significant amounts of alcohol though the brought him to [facility] from [place] for an intervention. Patient was noted to have severe metabolic acidosis on arrival in the ER as well as hyperkalemia with suspected DKA. He also was noted to have an elevated lactic acid, abnormal renal function and leukocytosis. He was treated with IV calcium, bicarbonate, albuterol and subsequently given 7 units regular insulin IV and started on insulin drip per DKA protocol. He received 2 L normal saline bolus and was continued on IV fluids. Patient was accepted for admission by critical care medicine service. I evaluated the patient in the ER. At that time he was much more awake however was too drowsy. He was easily arousable and couldn't give me some of his history. History was obtained by reviewing records, discussion with patient as well as ER physician and ER nurse. When I evaluated the patient he denied any chest pain or nausea or abdominal discomfort. He denied any fever or chills. Denied any productive cough. He denied any dysuria or hematuria or any other urinary problem. [facility] Past Medical History Diabetes: Yes Patient Takes Glucophage: No Hypertension Past Surgical History Appendectomy: Yes Social History Alcohol Use: Yes (OCC) Tobacco Use: No Substance Use: No Family history: Patient denies any family history of diabetes mellitus. Allergies-Medications (Allergen,Severity, Reaction): Coded Allergies: No Known Drug Allergies (Verified Allergy, Unknown, 06/29/17) Medications at home: Lantus insulin 30 units subcutaneously daily at bedtime Regular insulin 9 units 3 times a day before meals Lisinopril 5 mg daily (recently started per patient) Review of Systems ROS Limitations: Clinical Condition, Altered Mental Status Per history of present illness CBC/BMP: 07/02/17 0620 07/02/17 0600 Significant Findings Laboratory Tests Test 06/29/17 10:25 06/29/17 11:45 06/29/17 11:50 06/29/17 12:53 Blood Gas HCO3 3 mmol/L (22-26) Blood Gas Base Excess -25.5 mmol/L (-2-2) Arterial Blood pH 7.06 (7.380-7.420) Arterial Blood Partial Pressure CO2 12 mmHg (38-42) Arterial Blood Partial Pressure O2 144 mmHg (61-120) Potassium Level 6.4 MEQ/L (3.5-5.1) Random Glucose 1176 MG/DL (74-106) 1170 MG/DL (74-106) Urine Protein 30 mg/dL (NEG-TRACE) Urine Glucose (UA) 1000 mg/dL (NEG) Urine Ketones 150 mg/dL (NEG) Urine Occult Blood SMALL (NEG) Urine WBC 6 /hpf (0-5) Urine Bacteria RARE /hpf (NONE) Urine Mucus FEW /lpf (OCC) Test 06/29/17 13:30 06/29/17 14:05 06/29/17 15:20 06/29/17 16:46 Blood Gas HCO3 4 mmol/L (22-26) Blood Gas Base Excess -23.4 mmol/L (-2-2) Arterial Blood pH 7.13 (7.380-7.420) Arterial Blood Partial Pressure CO2 14 mmHg (38-42) Arterial Blood Partial Pressure O2 128 mmHg (61-120) Blood Urea Nitrogen 63 MG/DL (7-18) Creatinine 4.38 MG/DL (0.60-1.30) Random Glucose 1055 MG/DL (74-106) 983 MG/DL (74-106) Magnesium Level 3.0 MG/DL (1.5-2.5) Sodium Level 132 MEQ/L (136-145) Chloride Level 97 MEQ/L (98-107) Carbon Dioxide Level 7.1 MEQ/L (21.0-32.0) Anion Gap 28 MEQ/L (5-15) Estimat Glomerular Filtration Rate 18 ML/MIN (>89) Test 06/29/17 19:20 06/30/17 03:40 06/30/17 10:16 06/30/17 16:20 Blood Urea Nitrogen 50 MG/DL (7-18) 34 MG/DL (7-18) 24 MG/DL (7-18) 19 MG/DL (7-18) Creatinine 3.72 MG/DL (0.60-1.30) 2.27 MG/DL (0.60-1.30) 1.79 MG/DL (0.60-1.30) 1.64 MG/DL (0.60-1.30) Random Glucose 682 MG/DL (74-106) 143 MG/DL (74-106) 240 MG/DL (74-106) 195 MG/DL (74-106) Phosphorus Level 1.1 MG/DL (2.5-4.9) 1.8 MG/DL (2.5-4.9) 2.3 MG/DL (2.5-4.9) 2.0 MG/DL (2.5-4.9) Magnesium Level 2.9 MG/DL (1.5-2.5) Carbon Dioxide Level 14.0 MEQ/L (21.0-32.0) Anion Gap 22 MEQ/L (5-15) Estimat Glomerular Filtration Rate 22 ML/MIN (>89) 39 ML/MIN (>89) 51 ML/MIN (>89) 57 ML/MIN (>89) B-Hydroxybutyrate 7.42 MMOL/L (0.00-0.39) 4.84 MMOL/L (0.00-0.39) Sodium Level 152 MEQ/L (136-145) Potassium Level 3.4 MEQ/L (3.5-5.1) 3.4 MEQ/L (3.5-5.1) Chloride Level 117 MEQ/L (98-107) 111 MEQ/L (98-107) 108 MEQ/L (98-107) Test 07/01/17 06:00 07/01/17 08:28 07/02/17 06:00 07/02/17 06:20 White Blood Count 11.3 TH/MM3 (4.0-11.0) Red Blood Count 4.45 MIL/MM3 (4.50-5.90) 4.13 MIL/MM3 (4.50-5.90) Hemoglobin 12.9 GM/DL (13.0-17.0) 12.2 GM/DL (13.0-17.0) Neutrophils (%) (Auto) 76.0 % (16.0-70.0) Neutrophils # (Auto) 8.6 TH/MM3 (1.8-7.7) Creatinine 1.33 MG/DL (0.60-1.30) Total Protein 6.2 GM/DL (6.4-8.2) Albumin 3.1 GM/DL (3.4-5.0) Potassium Level 3.1 MEQ/L (3.5-5.1) Estimat Glomerular Filtration Rate 73 ML/MIN (>89) Random Glucose 179 MG/DL (74-106) Hematocrit 37.2 % (39.0-51.0) Monocytes (%) (Auto) 9.0 % (0.0-8.0) Imaging Last Impressions Chest X-Ray 06/29/17 0000 Signed Impressions: Service Date/Time: Thursday, June 29, 2017 11:18 - CONCLUSION: No acute disease. Zev Banda Jr., MD PE at Discharge General: No acute distress. Heart: Regular rate and rhythm. No murmur. Lungs: Clear to auscultation bilaterally. No wheezes, rales, or rhonchi. Breathing is nonlabored. Abdomen: Soft, nontender, nondistended. Extremities: No lower extremity edema. Psych: Alert and oriented. Hospital Course The patient was admitted to the critical care service for management of DKA. He was placed on insulin drip and managed per DKA protocol. Serum glucose and electrolytes improved. He was transitioned off of the insulin drip to subcutaneous insulin. He was transferred out of the intensive care unit. His symptoms continued to improve. He was continued on IV fluids and acute kidney injury improved. He was felt to be stable for discharge home. He was counseled regarding alcohol abuse. Pt Condition on Discharge: Stable Discharge Disposition: Discharge Home Discharge Time: > 30 minutes Discharge Instructions DIET: Follow Instructions for: Heart Healthy Diet Activities you can perform: Regular-No Restrictions Follow up Referrals: PCP Follow-up - 1 Week New Medications: Folic Acid (Folic Acid) 1 Mg Tablet 1 MG PO DAILY for Nutritional Supplement, #30 TAB 0 Refills Insulin Human Regular Inj (Novolin R Inj) 1,000 Unit/10 Ml Vial 1 UNIT SQ ACHS SLIDING SCALE for Blood Sugar Management, #90 INJECTION 0 Refills Fasting Sugar <200=No coverage Max Dose HS: 2U Max Dose @ 3am=0 U Bld. Sugar <70=No Insulin 150-199=1 U 200-249=3 U 250-299=5 U 300-349=7 U >349=9 U Thiamine HCl (Gnp Vitamin B-1) 100 Mg Tab 100 MG PO DAILY for Nutritional Supplement, #30 TAB 0 Refills Continued Medications: Insulin Glargine Inj (Lantus Inj) 100 Unit/Ml Inj 30 UNITS SQ HS Insulin Lispro (Human) Inj (Humalog Inj) 1,000 Unit/10 Ml Vial 8 UNITS SQ TIDAC for Blood Sugar Management, #1 VIAL 0 Refills Venlafaxine (Effexor) 100 Mg Tab 150 MG PO DAILY, #60 TAB 0 Refills [Hiv Medications] () DAILY Discontinued Medications: Lisinopril (Lisinopril) 20 Mg Tab 20 MG PO DAILY, #30 TAB 0 Refills Eleuterio Amin MD Jul 02, 2017 09:58
[2017-07-02 12:00] VITALS: BP 131/76; PULSE 74; RESP 18; TEMP 98; O2SAT 99
[2017-07-02 16:41] LABS: HEMOGLOBIN A1b 1.2 %; HEMOGLOBIN Ao 69.4 %; HEMOGLOBIN F 2.7 %; HEMOGLOBIN LA1C 4.4 %; HEMOGLOBIN P3 6.2 %
== END 2017-07-02 14:12 | disposition home or self-care (01) | DRG 637 ==
LOC: NEPE 09:11 → NEDA 11:13 → HIME 13:00 → N04A 06-30 21:25
PROVIDERS: ADMIT Family Medicine; ATTEND Family Medicine
PROC: 0T9B70Z Drainage of Bladder with Drainage Device, Via Natural or Artificial Opening (ICD-10-PCS; principal; 2017-06-26)
DX: E10.10 Type 1 diabetes mellitus with ketoacidosis without coma (principal); G93.41 Metabolic encephalopathy; N17.9 Acute kidney failure, unspecified; E87.0 Hyperosmolality and hypernatremia; E87.5 Hyperkalemia; E86.0 Dehydration; I10 Essential (primary) hypertension; D72.829 Elevated white blood cell count, unspecified; E87.6 Hypokalemia; R06.4 Hyperventilation; F10.10 Alcohol abuse, uncomplicated; Z79.4 Long term (current) use of insulin
CPT/HCPCS: 36600; 71010; 80048; 80053; 80307; 81001; 82010; 82140; 82150; 82435; 82550; 82565; 82805; 82947; 82948; 83036; 83605; 83690; 83735; 84100; 84132; 84295; 84443; 84520; 85007; 85025; 85027; 85730; 87040; 87086; 87641; 93005; 94640; 96365; 96375; J0610; J0692; J1815; J1817; J3370; J3480; J7030; J7042; J7050; J7613